=== PATIENT | male | born 1960 | race Hispanic/Latino ===

== ENCOUNTER 2020-10-28 09:41 | Emergency (ER) | payer BC | END 2020-10-28 10:28 | disposition home or self-care (01) | LOC: MADERS 09:41 | DX: M54.5 Low back pain (principal); M54.6 Pain in thoracic spine; E11.9 Type 2 diabetes mellitus without complications; Z79.84 Long term (current) use of oral hypoglycemic drugs | CPT/HCPCS: 99283 ==